=== PATIENT | female | born 1975 | race Caucasian/White ===

== ENCOUNTER 2018-02-20 23:39 | Emergency (ER) | payer OTHER ==
--- OUTSIDE RECORDS SUMMARY | 2018-02-20 23:42 | XMS REPORT | Continuity of Care Document ---
:1975 Author Organization Interface Problems Problem Status Onset Classification Date Comments Source Date Reported FOLLOW UP Active 06/11/[address] R10.11 - RIGHT Active 05/01/19 [facility] UPPER QUADRANT [address] [place] PAIN K50.8 NEW VISIT Active 03/26/[address] BDDC- R14.0 AB Active 03/12/19 [facility] DISTENSION [address] [place] [address] BDDC- R14.0 AB Active 03/12/19 [facility] DISTENS[facility] [address] [place] [address] R14.0 - Active 03/11/19 [facility] ABDOMINAL [address] [place] DISTENSION (GASEOUS) BDDC/K50.80 Active 01/09/20 [facility] CROHN'S Medical DISEASE OF Center BOTH SMAL BDDC/ Active 01/09/[address] FOLLOW UP PER Active 01/07/[address] BLEEDING Active 07/07/[address] BDDC - K50.90 Active 05/02/19 [facility] CROHN'S Medical DISEASE W/O Center COMPLI CROHN'S Active 04/28/19 [facility] DISEASE Medical SELF Center REFERRAL Hemorrhoids<miramontes Active 12/08/19 Problem 06/19/2016 Data migrated [facility] p>2</sup> 07 from [employer] [facility] [place], 07/27/14. [facility] [place] Anxiety Active Problem 06/19/2016 Data migrated [facility] disorder<sup>1 from [employer] </sup> [facility] [place], 07/27/14. [facility] [place] Anxiety Active Problem 06/19/2016 [facility] OPIKate [place] Colon polyps Resolved Problem 06/19/2016 [facility], OP[facility] Rdoo High blood Active Problem 06/19/2016 [facility], [facility] [place] IBD (<span Active Problem 06/19/2016 [facility] ID="[id number] Medical 09">Confirmed< Center, /span>) [facility] [place] Medications Medication Details Route Status Patient Ordering Order Source Instructions Provider Date Domperidone Domperidone Active [place] , 10 mg=, 017 Medical PO, QID, Center Script given to pt and pt signed consent., # 120 tab, Refill(s) 2, other Rabeprazole 10 mg=1 Active [facility] sodium 10 MG cap, PO, 017 Medical Enteric Coated Daily, # 90 Center Capsule [Aciphex] cap, 3 Refill(s), Pharmacy: [facility] #6704 Phenergan 25 mg 25 mg=1 Active [facility] oral tablet tab, PO, 017 Medical Daily, X 30 Center day, # 30 tab, 0 Refill(s), Pharmacy: [facility] #6704 Hyoscyamine 0.125 mg=1 Active [facility] Sulfate 0.125 MG tab, SL, 017 Medical Sublingual Tablet Q6H, # 120 Center [Levsin] tab, 0 Refill(s), Pharmacy: [facility] #6704 {2 (480 ML See Active [facility] Magnesium Sulfate Instruction 016 Medical 0.0277 MEQ/ML / s, 177 mL Center potassium sulfate PO ONCE, # 0.0374 MEQ/ML / 354 mL, 0 sodium sulfate Refill(s), 0.257 MEQ/ML Oral other Solution) } Pack [Suprep Bowel Prep Kit] Ascorbic Acid 4.7 See Inactive [facility] MG/ML / Instruction 016 Medical POLYETHYLENE s, Take as Center GLYCOL 3350 100 directed by MG/ML / Potassium physician., Chloride 0.0136 # 1 ea, 0 MEQ/ML / Sodium Refill(s), Ascorbate 5.9 other MG/ML / Sodium Chloride 0.046 MEQ/ML / sodium sulfate 7.5 MG/ML Oral Solution [MoviPrep] rifaximin 550 MG 550 mg=1 Active [facility] Oral Tablet tab, PO, 016 Medical [XIFAXAN] TID, # 42 Center tab, 0 Refill(s), other non-formulary Refill(s) 0 Active [facility] 016 Medical Center Rabeprazole 20 mg=1 Active [facility] sodium 20 MG tab, PO, 016 Medical Enteric Coated Daily, # 30 Center Tablet [Aciphex] tab, 1 Refill(s), Pharmacy: [facility]/pharm[facility] #6704 Promethazine 12.5 mg=1 Active [facility] Hydrochloride tab, PO, 016 Medical 12.5 MG Oral Q4H, PRN Center Tablet Nausea & [Phenergan] Vomiting, # 80 tab, 1 Refill(s), [facility] Amoxicillin 500 1 tab, PO, Active [facility] MG / Clavulanate Q8H, X 10 016 Medical 125 MG Oral day, # 30 Center Tablet [Augmentin tab, 0 500-mg] Refill(s), Pharmacy: [facility]/pharmac [facility] #6707 {2 (480 ML 177 mL, PO, Active [facility] Magnesium Sulfate ONCE, # 177 016 Medical 0.0277 MEQ/ML / mL, 0 [place] potassium sulfate Refill(s), 0.0374 MEQ/ML / Pharmacy: sodium sulfate [facility] 0.257 MEQ/ML Oral y #6701 Solution) } Pack [Suprep Bowel Prep Kit] GoLYTELY oral See Inactive [facility] powder for Instruction 016 Medical reconstitution s, Take as Center directed by physician., # 1 ea, 0 Refill(s), Pharmacy: [facility]/pharmac [facility] #6704 multivitamin Daily, 0 Active [facility] Refill(s) [address] [place] [address] Folic Acid Daily, 0 Active [facility] Refill(s) [address] [place] [address] Center Methotrexate 0 Refill(s) Active [address] Center Prevacid 30 mg, PO, Active [place] Daily, # 15 016 Medical cap, 0 Center Refill(s) Remicade 5 mg/kg, Active [facility] IV, 0 016 Medical Refill(s) Center Allergies, Adverse Reactions, Alerts Substance Category Reaction Severity Reaction Status Date Comments Source type Reported Latex Assertion Drug Active [facility] morphine Assertion Drug Active [facility] NSAIDs Assertion Drug Active [facility] Immunizations Immunization Date Given Site Status Last Updated Comments Source Results Order Results Value Reference Date Interpretation Comments Source Name Range Chest 2 Chest 2 EXAM: XR CHEST 2 VIEWS 01/08 - [facility] views views /2015 - [place] DX DATE: 01/09/2016 1:53 PM 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 TECHNIQUE: PA and lateral chest radiographs. Number of images: 2 FINDINGS: Lines and tubes: None. Lungs and pleura: No pulmonary or pleural based abnormality is identified. Heart and mediastinum: The heart size is normal for technique. The mediastinal contours are normal. Bones: No acute bony abnormality is identified. Soft Tissues: Unremarkable. IMPRESSION: 1. No acute cardiopulmonary abnormality. Vital Signs Vital Sign Value Date Comments Source Systolic (mm Hg) 116 06/16/2016 [facility] Diastolic (mm Hg) 80 06/16/2016 [facility] Weight 52.727 06/16/2016 [facility] BMI Calculated 21.26 06/16/2016 [facility] Height 157.48 cm 06/16/2016 [facility] Respitory Rate 16 06/16/2016 [facility] Heart Rate 85 06/16/2016 [facility] Weight 74.545 04/30/2016 [facility] BMI Calculated 30.06 04/30/2016 [facility] Height 157.48 cm 04/30/2016 [facility] Heart Rate 76 04/30/2016 [facility] Respitory Rate 16 04/30/2016 [facility] Systolic (mm Hg) 110 04/30/2016 [facility] Diastolic (mm Hg) 78 04/30/2016 [facility] BMI Calculated 30.49 01/09/2016 [facility] Weight 75.625 01/09/2016 [facility] Height 157.48 cm 01/09/2016 [facility] Systolic (mm Hg) 114 01/09/2016 [facility] Diastolic (mm Hg) 73 01/09/2016 [facility] Heart Rate 77 01/09/2016 [facility] Temperature Oral (F) 98.2 F 01/09/2016 [facility] Height 157.48 cm 07/09/2015 [facility] BMI Calculated 29.37 07/09/2015 [facility] Weight 72.841 07/09/2015 [facility] Systolic (mm Hg) 118 07/09/2015 [facility] Diastolic (mm Hg) 84 07/09/2015 [facility] Heart Rate 81 07/09/2015 [facility] Temperature Oral (F) 96.2 F 07/09/2015 [facility] BMI Calculated 28.41 07/08/2015 [facility] Weight 70.455 07/08/2015 [facility] Heart Rate 67 07/08/2015 [facility] Systolic (mm Hg) 122 07/08/2015 [facility] Diastolic (mm Hg) 76 07/08/2015 [facility] Respitory Rate 18 07/08/2015 [facility] Height 157.48 cm 07/08/2015 [facility] Temperature Oral (F) 98.1 F 07/08/2015 [facility] Height 157.48 cm 06/11/2015 [facility] Weight 72.955 06/11/2015 [facility] Temperature Oral (F) 97.3 F 06/11/2015 [facility] BMI Calculated 29.42 06/11/2015 [facility] Heart Rate 76 06/11/2015 [facility] Systolic (mm Hg) 138 06/11/2015 [facility] Diastolic (mm Hg) 84 06/11/2015 [facility] BMI Calculated 29.33 05/02/2015 [facility] Weight 72.727 05/02/2015 [facility] Temperature Oral (F) 97.9 F 05/02/2015 [facility] Heart Rate 77 05/02/2015 [facility] Height 157.48 cm 05/02/2015 [facility] Systolic (mm Hg) 118 05/02/2015 [facility] Diastolic (mm Hg) 74 05/02/2015 [facility] Encounters Location Location Encounter Encounter Reason Attending ADM DC Status Source Details Type Number For Provider Date Date Visit [facility] [id number] Marlon 05/01 05/[address] [facility] [place] /2015 [facility] Bedded [id number] Marlon 05/25 05/[address] [facility] Outpatient [place] /2015 [facility] Outpatient [id number] Marlon 06/10 06/[address] [facility] [place] /2015 [facility] EC [id number] Jeevan 07/07 07/[address] [facility] Emergency [place] /2015 [facility] Outpatient [id number] Marlon 07/08 07/09 [facility] [id number] [facility] 12/23 Active [facility] Outpatient [id number] Marlon 01/08 01/09 [facility] [id number] Soadrianab 01/08 01/09 [facility] Bedded [id number] Marlon 01/14 01/[address] [facility] Outpatient [place] /2015 [facility] Bedded [id number] Marlon 02/08 02/[address] [facility] Outpatient [place] /2015 [facility] Outpatient [id number] EDWARD 03/24 [facility] Outpatient [id number] Marlon 03/30 03/31 [facility] /2016 [facility] Outpatient [id number] Marlon 04/30 05/01 [facility] /2016 [facility] Outpatient [id number] Marlon 06/16 06/17 [facility] /2016 [facility] Procedures Procedure Code Date Perfomer Comments Source Colonoscopy [id number] [facility] Ileum [id number] Removal of [place] operations<sup>1</ partial Medical sup> ileum/cecum/ap Center pendix Colonoscopy [id number] [facility] [place] Ileum 8155227 Removal of [facility] operations<sup>1</ partial [place] sup> ileum/cecum/ap pendix
--- OUTSIDE RECORDS SUMMARY | 2018-02-20 23:42 | XMS REPORT | Summary of Care ---
:1975 Author Organization [facility] Address [address] [id number]- Encounter HQ Camelia(VIET) [id number] Date(s): 06/11/15 - 06/11/15 [facility] [address] [place] [address]- [facility] [phone] Discharge Disposition: Home Attending Physician: Marlon Avitia MD Referring Physician: Marlon Avitia MD Vital Signs Most recent to oldest [Reference Range]: 1 Height 157.48 cm (06/11/15 2:22 PM) Temperature Oral [96.4-99.1 DegF] 97.3 DegF (06/11/15 2:22 PM) Blood Pressure [90-140/60-90 mmHg] 138/84 mmHg (06/11/15 2:22 PM) Peripheral Pulse Rate [60-100 bpm] 76 bpm (06/11/15 2:22 PM) Weight 72.955 kg (06/11/15 2:22 PM) Body Mass Index 29.42 m2 (06/11/15 2:22 PM) Problem List Condition Effective Dates Status Health Status Informant Anxiety(Confirmed) Active Anxiety disorder1 Active Colon polyps(Confirmed) Resolved Hemorrhoids2 12/07/06 Active High blood pressure(Confirmed) Active IBD (inflammatory bowel Active disease)(Confirmed) 1Data migrated from [employer] on 07/27/14.2Data migrated from [employer] on 07/27/14. Allergies, Adverse Reactions, Alerts Substance Reaction Severity Status morphine Active NKDA1 Active 1Data migrated from [employer] on 04/22/15. Originally documented as NKA. Medications Aciphex 20 mg oral enteric coated tablet 20 mg=1 tab, PO, Daily, # 30 tab, 1 Refill(s), Pharmacy: [facility]/pharmacy #[id number] Start Date: 06/11/15 Stop Date: 08/10/15 Status: OrderedAugmentin 500 mg oral tablet 1 tab, PO, Q8H, X 10 day, # 30 tab, 0 Refill(s), Pharmacy: [facility]/pharmacy #[id number] Start Date: 06/11/15 Stop Date: 06/21/15 Status: OrderedPhenergan 12.5 mg oral tablet 12.5 mg=1 tab, PO, Q4H, PRN Nausea & Vomiting, # 80 tab, 1 Refill(s), [id number] Start Date: 06/11/15 Stop Date: 06/10/16 Status: Ordered Results No data available for this section Immunizations No data available for this section Procedures Procedure Date Related Diagnosis Body Site Colonoscopy Social History Social History Type Response Smoking Status Former smoker; Exposure to Tobacco Smoke None; Cigarette Smoking Last 365 Days No; Reg Smoking Cessation Counseling No Assessment and Plan No data available for this section
--- OUTSIDE RECORDS SUMMARY | 2018-02-20 23:42 | XMS REPORT | Summary of Care ---
:1975 Author Organization [facility] Address [address] [address]- Encounter HQ Camelia(VIET) [id number] Date(s): 05/02/15 - 05/02/15 [facility] [address] [place] [address]- [facility] [phone] Discharge Disposition: Home Attending Physician: Marlon Avitia MD Referring Physician: Marlon Avitia MD Vital Signs Most recent to oldest [Reference Range]: 1 Height 157.48 cm (05/02/15 9:30 AM) Temperature Oral [96.4-99.1 DegF] 97.9 DegF (05/02/15 9:30 AM) Blood Pressure [90-140/60-90 mmHg] 118/74 mmHg (05/02/15 9:30 AM) Peripheral Pulse Rate [60-100 bpm] 77 bpm (05/02/15 9:30 AM) Weight 72.727 kg (05/02/15 9:30 AM) Body Mass Index 29.33 m2 (05/02/15 9:30 AM) Problem List Condition Effective Dates Status Health Status Informant Anxiety(Confirmed) Active Anxiety disorder1 Active Colon polyps(Confirmed) Resolved Hemorrhoids2 12/07/06 Active High blood pressure(Confirmed) Active IBD (inflammatory bowel Active disease)(Confirmed) 1Data migrated from [employer] on 07/27/14.2Data migrated from [employer] on 07/27/14. Allergies, Adverse Reactions, Alerts Substance Reaction Severity Status morphine Active NKDA1 Active 1Data migrated from [employer] on 04/22/15. Originally documented as NKA. Medications folic acid Daily, 0 Refill(s) Start Date: 05/02/15 Status: OrderedGoLYTELY oral powder for reconstitution See Instructions, Take as directed by physician., # 1 ea, 0 Refill(s), Pharmacy : [facility]/pharmacy #[id number] Start Date: 05/02/15 Stop Date: 05/02/15 Status: Discontinuedmethotrexate 0 Refill(s) Start Date: 05/02/15 Status: Orderedmultivitamin Daily, 0 Refill(s) Start Date: 05/02/15 Status: OrderedPrevacid 30 mg, PO, Daily, # 15 cap, 0 Refill(s) Start Date: 05/02/15 Stop Date: 05/17/15 Status: OrderedRemicade 5 mg/kg, IV, 0 Refill(s) Start Date: 05/02/15 Status: OrderedSuprep Bowel Prep Kit oral liquid 177 mL, PO, ONCE, # 177 mL, 0 Refill(s), Pharmacy: [facility]/pharmacy #[id number] Start Date: 05/02/15 Status: Ordered Results No data available for [...]
--- OUTSIDE RECORDS SUMMARY | 2018-02-20 23:42 | XMS REPORT | Summary of Care ---
:1975 Author Organization [facility] Address [address] [place], [place] [address]- Encounter HQ Camelia(FIN) [id number] Date(s): 07/07/15 - 07/07/15 [facility] [address] [place] [address] Professional Services provided by [facility] [place] [address]- Discharge Disposition: Not Seen Attending Physician: Jeevan Oneil MD Vital Signs Most recent to oldest [Reference Range]: 1 Height 157.48 cm (07/07/15 8:45 PM) Temperature Oral [96.4-99.1 DegF] 98.1 DegF (07/07/15 8:45 PM) Blood Pressure [90-140/60-90 mmHg] 122/76 mmHg (07/07/15 8:45 PM) Respiratory Rate [14-20 BRMIN] 18 BRMIN (07/07/15 8:45 PM) Peripheral Pulse Rate [60-100 bpm] 67 bpm (07/07/15 8:45 PM) Weight 70.455 kg (07/07/15 8:45 PM) Body Mass Index 28.41 m2 (07/07/15 8:45 PM) Problem List Condition Effective Dates Status Health Status Informant Anxiety(Confirmed) Active Anxiety disorder1 Active Colon polyps(Confirmed) Resolved Hemorrhoids2 12/07/06 Active High blood pressure(Confirmed) Active IBD (inflammatory bowel Active disease)(Confirmed) 1Data migrated from [employer] on 07/27/14.2Data migrated from [employer] on 07/27/14. Allergies, Adverse Reactions, Alerts Substance Reaction Severity Status Latex Active morphine Active NKDA1 Active NSAIDs Active 1Data migrated from [employer] on 04/22/15. Originally documented as NKA. Medications No data available for this section Results No data available for this section [...]
--- OUTSIDE RECORDS SUMMARY | 2018-02-20 23:42 | XMS REPORT | Summary of Care ---
:1975 Author Organization [facility] Address [address] [place], [place] [address]- Encounter HQ Pj_danita(FIN) [id number] Date(s): 05/26/15 - 05/26/15 [facility] [address] [place] [address] [facility] Discharge Disposition: Home Attending Physician: Marlon Avitia MD Referring Physician: Marlon Avitia MD Vital Signs No data available for this section Problem List Condition Effective Dates Status Health [...]
--- OUTSIDE RECORDS SUMMARY | 2018-02-20 23:43 | XMS REPORT | Summary of Care ---
:1975 Author Organization [facility] Address [address] [place], [place] [address]- Encounter HQ Pj_danita(FIN) [id number] Date(s): 01/09/16 - 01/09/16 [facility] [address] [place] [address]- [phone] Discharge Disposition: Home or Self Care Attending Physician: Galen Brothers MD Vital Signs No data available for this section Problem List Condition Effective Dates Status Health Status Informant Anxiety disorder1 Active Anxiety(Confirmed) Active Colon polyps(Confirmed) Resolved Hemorrhoids2 12/07/06 Active [...] Procedure Date Related Diagnosis Body Site Colonoscopy Ileum operations1 1Removal of partial ileum/cecum/appendix Social History Social History Type Response Substance Abuse Use: None. 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
--- OUTSIDE RECORDS SUMMARY | 2018-02-20 23:43 | XMS REPORT | Summary of Care ---
:1975 Author Organization [facility] Address [address] [place], [place] [address]- Encounter HQ Pj_danita(FIN) [id number] Date(s): 06/16/16 - 06/16/16 [facility] [address] [place] [address] [phone] Discharge Disposition: Home or Self Care Attending Physician: Marlon Avitia MD Referring Physician: Marlon Avitia MD Vital Signs Most recent to oldest [Reference Range]: 1 Height 157.48 cm (06/16/16 2:32 PM) Blood Pressure [90-140/60-90 mmHg] 116/80 mmHg (06/16/16 2:32 PM) Respiratory Rate [14-20 BRMIN] 16 BRMIN (06/16/16 2:32 PM) Peripheral Pulse Rate [60-100 bpm] 85 bpm (06/16/16 2:32 PM) Weight 52.727 kg (06/16/16 2:32 PM) Body Mass Index 21.26 m2 (06/16/16 2:32 PM) Problem List Condition Effective Dates Status [...] on 04/22/15. Originally documented as NKA. Medications Domperidone Domperidone, 10 mg=, PO, QID, Script given to pt and pt signed consent., # 120 tab, Refill(s) 2, other Start Date: 06/16/16 Status: Ordered Results No data available for [...]
--- OUTSIDE RECORDS SUMMARY | 2018-02-20 23:43 | XMS REPORT | Summary of Care ---
:1975 Author Organization [facility] Address [address] [address]- Encounter HQ Camelia(VIET) [id number] Date(s): 07/09/15 - 07/09/15 [facility] [address] [place] [address]- [facility] [phone] Discharge Disposition: Home Attending Physician: Marlon Avitia MD Referring Physician: Marlon Avitia MD Vital Signs Most recent to oldest [Reference Range]: 1 Height 157.48 cm (07/09/15 3:09 PM) Temperature Oral [96.4-99.1 DegF] 96.2 DegF *LOW* (07/09/15 3:09 PM) Blood Pressure [90-140/60-90 mmHg] 118/84 mmHg (07/09/15 3:09 PM) Peripheral Pulse Rate [60-100 bpm] 81 bpm (07/09/15 3:09 PM) Weight 72.841 kg (07/09/15 3:09 PM) Body Mass Index 29.37 m2 (07/09/15 3:09 PM) Problem List Condition Effective Dates Status [...] on 04/22/15. Originally documented as NKA. Medications non-formulary Refill(s) 0 Start Date: 07/09/15 Status: Ordered Results No data available for [...]
--- OUTSIDE RECORDS SUMMARY | 2018-02-20 23:43 | XMS REPORT | Summary of Care ---
:1975 Author Organization [facility] Address [address] [place], [place] [address]- Encounter HQ Pj_danita(FIN) [id number] Date(s): 02/09/16 - 02/09/[address] [address]- [place] Discharge Disposition: Home or Self Care Attending [...] Counseling No 1Occasional drinker Assessment and Plan Extracted from: Title: Ingestion of Smartpill Author: Catarina Wilson RN Date: 02/09/16 Patient was here for ingestion of Smart Pill for GI transit study. NPO status verified. The patient stated that they had no allergies to the ingredients in the meal/bar provided. Patient did not take any GI altering medications. Patient was instructed to eat the meal/bar provided in 15 minutes. Patient ingested the meal without difficulty. The patient was shown the capsule/smart pill to swallow and the capsule/smart pill was swallowed with no difficulty. The patient agreed to not eat anything for 6 hours. Diary was provided and instructions given on how to keep the diary The patient confirmed that they were aware not to have an MRI for 30 days Our phone number was provided for questions and concerns. Patient was instructed to return the monitor to the [facility]. [id number] Pressure Julian Code HA5 HA5
--- OUTSIDE RECORDS SUMMARY | 2018-02-20 23:43 | XMS REPORT | Summary of Care ---
:1975 Author Organization [facility] Address [address] [place], [place] [address]- Encounter HQ Camelia(VIET) [phone] Date(s): 01/09/16 - 01/09/16 [facility] [address] [place] [address] [phone] Discharge Disposition: Home or Self Care Attending Physician: Marlon Avitia MD Referring Physician: Marlon Avitia MD Vital Signs Most recent to oldest [Reference Range]: 1 Height 157.48 cm (01/09/16 9:59 AM) Temperature Oral [96.4-99.1 DegF] 98.2 DegF (01/09/16 9:59 AM) Blood Pressure [90-140/60-90 mmHg] 114/73 mmHg (01/09/16 9:59 AM) Peripheral Pulse Rate [60-100 bpm] 77 bpm (01/09/16 9:59 AM) Weight 75.625 kg (01/09/16 9:59 AM) Body Mass Index 30.49 m2 (01/09/16 9:59 AM) Problem List Condition Effective Dates Status [...] on 04/22/15. Originally documented as NKA. Medications MoviPrep oral powder for reconstitution See Instructions, Take as directed by physician., # 1 ea, 0 Refill(s), other Start Date: 01/09/16 Stop Date: 01/09/16 Status: DiscontinuedSuprep Bowel Prep Kit oral liquid See Instructions, 177 mL PO ONCE, # 354 mL, 0 Refill(s), other Start Date: 01/09/16 Status: OrderedXifaxan 550 mg oral tablet 550 mg=1 tab, PO, TID, # 42 tab, 0 Refill(s), other Start Date: 01/09/16 Stop Date: 01/23/16 Status: Ordered Results No data available for [...]
--- OUTSIDE RECORDS SUMMARY | 2018-02-20 23:43 | XMS REPORT | Summary of Care ---
:1975 Author Organization [facility] [place] [facility] Address [address] [place], [place] [address]- Encounter HQ Camelia(FIN) [phone] Date(s): 01/15/16 - 01/15/[address] [address]- [place] Discharge Disposition: Home or Self Care [...] and Plan Extracted from: Title: Ingestion of Small Bowel Capsule Author: Jessy Ojeda RN Date: 01/15/16 I spoke with patient in pre-op and explained the procedure and post-procedure instructions. In pre-op NPO/prep status was verified. Pt denied that they have any swallowing disorders; any GI obstruction that they are aware of; and patient understands not to have a MRI in the next thirty days if capsule is not visualized passing from GI tract. If an MRI is needed within the thirty day time frame a X-Ray must be done first to make sure the Capsule has passed, if not visualized. The patient was instructed to call the doctor or seek help in the event of abdominal pain, nausea, and or vomiting while the s tudy is taking place. The patient was instructed that they may drink 2 hours after the PillCam Small Bowel Capsule was placed. The patient was instructed not to drink anything red or purple during the s tudy. The patient was also instructed that they may eat a light lunch 4 hours after the Small Bowel Capsule was placed. The patient verbalized understanding of all instructions. The sensor belt was placed on the patient in pre-op and instructed on how to wear the belt and monitor. The patient was given written instructions and verbalized understanding. Small bowel capsule was placed via EGD by Dr. Irene. The post-op nurses were informed of these instructions as well. Capsule ID [id number] Exp. Lot 2016-12
--- OUTSIDE RECORDS SUMMARY | 2018-02-20 23:43 | XMS REPORT | Summary of Care ---
:1975 Author Organization [facility] Address [address] [place], [place] [address]- Encounter HQ Encntr_aliisa(FIN) [phone] Date(s): 03/30/16 - 03/30/16 [facility] [address] [place] [phone] Discharge Disposition: Home or Self Care Attending [...]
--- OUTSIDE RECORDS SUMMARY | 2018-02-20 23:43 | XMS REPORT | Summary of Care ---
:1975 Author Organization [facility] [place] [facility] Address [address] [place], [place] [address]- Encounter HQ Pj_danita(FIN) [phone] Date(s): 04/30/16 - 04/30/16 [facility] [place] [facility] [address] [place] [phone] Discharge Disposition: Home or Self Care Attending Physician: Marlon Avitia MD Referring Physician: Marlon Avitia MD Vital Signs Most recent to oldest [Reference Range]: 1 Height 157.48 cm (04/30/16 10:01 AM) Blood Pressure [90-140/60-90 mmHg] 110/78 mmHg (04/30/16 10:01 AM) Respiratory Rate [14-20 BRMIN] 16 BRMIN (04/30/16 10:01 AM) Peripheral Pulse Rate [60-100 bpm] 76 bpm (04/30/16 10:01 AM) Weight 74.545 kg (04/30/16 10:01 AM) Body Mass Index 30.06 m2 (04/30/16 10:01 AM) Problem List Condition Effective Dates Status [...] on 04/22/15. Originally documented as NKA. Medications AcipHex Sprinkle 10 mg oral delayed release capsule 10 mg=1 cap, PO, Daily, # 90 cap, 3 Refill(s), Pharmacy: [facility]/pharmacy #[id number] Start Date: 04/30/16 Stop Date: 04/25/17 Status: OrderedLevsin SL 0.125 mg sublingual tablet 0.125 mg=1 tab, SL, Q6H, # 120 tab, 0 Refill(s), Pharmacy: [facility]/pharmacy #[id number] Start Date: 04/30/16 Stop Date: 05/30/16 Status: OrderedPhenergan 25 mg oral tablet 25 mg=1 tab, PO, Daily, X 30 day, # 30 tab, 0 Refill(s), Pharmacy: [facility]/pharmacy #[id number] Start Date: 04/30/16 Stop Date: 05/30/16 Status: Ordered Results No data available for [...]
[2018-02-21] MEDS ORDERED: NA CHLORIDE 0.9% 1,000 ML ONE (00:27)
[2018-02-21] MEDS ORDERED: METHYLPREDNISOLONE 125 MG INJ ONE (00:27)
[2018-02-21] MEDS ORDERED: IPRATROPIUM BROM 0.5MG/2.5ML ONE (00:28)
[2018-02-21] MEDS ORDERED: ALBUTEROL 2.5 MG/3 ML NEB SOL ONE (00:28)
[2018-02-21 01:28] LABS: Absolute Lymphocytes (CBC) 2.3 K/uL (0.7-4.9); Absolute Monocytes 0.7 K/uL (0.1-1.3); Absolute Neutrophil 8.5 K/uL (1.8-8.0); Basophils % 0.5 % (0-1.3); Eosinophils % 4.2 % (0-4.4); Hematocrit 36.6 % (36.0-45.0); Lymphocytes % 18.9 % (15.3-44.8); MPV 9.7 fL (7.6-11.3); Monocytes % 5.4 % (3.3-12.3)
[2018-02-21 01:37] LABS: Potassium 3.7 mmol/L (3.5-5.1)
[2018-02-21] MEDS ORDERED: ACETAMINOPHEN 500 MG TAB ONE (01:38)
[2018-02-21 01:46] LABS: Urine Blood 2+ (NEG); Urine Glucose NEGATIVE (NEG); Urine Protein NEGATIVE (NEG); Urine Specific Gravity >1.030 (1.005-1.030); Urine pH 5.5 (5.0-7.0)
[2018-02-21] MEDS ORDERED: LEVALBUTEROL 1.25 MG/3 ML NEB ONE (01:56)
[2018-02-21] MEDS ORDERED: CEFTRIAXONE/SWI 1gm 1 GM/10 ML SYR ONE (01:57)
--- NOTE | 2018-02-21 02:03 | ER ---
Nurse's Notes [facility] Name: Meseret Mccall Age: 42 yrs Sex: Female : 1975 Arrival Date: 02/20/2018 Time: 23:43 Bed 6 Private MD: Diagnosis: Acute sinusitis. Pharyngitis. Bronchitis Presentation: 02/20 23:55 Presenting complaint: Patient states: Sore throat, cough x 3-4 days, worsening; States lp1 "pain with cough, making it hard to breath"; Denies any fever. Transition of care: patient was not received from another setting of care. Onset of symptoms was February 20, 2018. Risk Assessment: Do you want to hurt yourself or someone else? Patient reports no desire to harm self or others. Initial Sepsis Screen: Does the patient meet any 2 criteria? No. Patient's initial sepsis screen is negative. Does the patient have a suspected source of infection? No. Patient's initial sepsis screen is negative. Care prior to arrival: None. 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 - Social history:: Smoking status: Patient uses tobacco products, denies chronic smoking, but will smoke occasionally. - Ebola Screening: : No symptoms or risks identified at this time. Screenin:58 Abuse screen: Denies threats or abuse. Denies injuries from another. Nutritional lp1 screening: No deficits noted. Tuberculosis screening: No symptoms or risk factors identified. Fall Risk None identified. Assessment: 02/21 00:00 General: Appears in no apparent distress. Behavior is appropriate for age. Pain: lp1 Complains of pain in throat Pain currently is 6 out of 10 on a pain scale. Neuro: Level of Consciousness is awake, alert, obeys commands, Oriented to person, place, time, situation. Cardiovascular: Patient's skin is warm and dry. Respiratory: Reports cough that is productive, persistent pain with cough Airway is patent Respiratory effort is even, unlabored, Breath sounds are clear bilaterally. Parent/caregiver reports the patient having shortness of breath pain with respiration pain with cough. GI: No signs and/or symptoms were reported involving the gastrointestinal system. : No signs and/or symptoms were reported regarding the genitourinary system. EENT: Throat has enlarged tonsils Reports nasal congestion nasal discharge. Derm: Skin is pink, warm \\T\\ dry. Musculoskeletal: No signs and/or symptoms reported regarding the musculoskeletal system. 01:21 Reassessment: Patient states headache at this time, related to coughing; Provider lp1 notifed. 02:30 Reassessment: Patient appears in no apparent distress at this time. Patient is alert, lp1 oriented x 3, equal unlabored respirations, skin warm/dry/pink. Patient states feeling better. Vital Signs: 02/20 23:56 BP 131 / 79; Pulse 93; Resp 18; Temp 98.9(O); Pulse Ox 100% on R/A; Weight 77.11 kg; lp1 Height 5 ft. 2 in. (157.48 cm); 02/21 01:54 BP 125 / 70; Pulse 86; Resp 18; Pulse Ox 98% on R/A; lp1 02:29 BP 124 / 77; Pulse 84; Resp 18; Pulse Ox 99% on R/A; lp1 02/20 23:56 Body Mass Index 31.09 (77.11 kg, 157.48 cm) lp1 ED Course: 02/20 23:43 Patient arrived in ED. al2 23:45 Inserted saline lock: 20 gauge in right antecubital area, using aseptic technique. mw2 Blood collected. 23:48 Barbara Moss, MARIANA is Primary Nurse. lp1 23:49 Bandar Hernandez MD is Attending Physician. pkl 23:56 Triage completed. lp1 23:57 Arm band placed on right wrist. lp1 23:58 Patient has correct armband on for positive identification. lp1 02/21 00:48 Chest Single View In Process Unspecified. EDMS 02:29 No provider procedures requiring assistance completed. IV discontinued, No lp1 redness/swelling at site. Pressure dressing applied. Administered Medications: 00:30 Drug: NS 0.9% 1000 ml Route: IV; Rate: 1000 ml; Site: right antecubital; la1 02:29 Follow up: IV Status: Completed infusion; IV Intake: 1000ml lp1 00:30 Drug: SOLU-Medrol 125 mg Route: IVP; Site: right antecubital; la1 01:45 Follow up: Response: No adverse reaction lp1 00:30 Drug: Albuterol - atroVENT (3:1) (2.5 mg - 0.5 mg) 3 ml Route: Nebulizer; la1 01:45 Follow up: Response: Marked relief of symptoms lp1 01:33 Drug: Tylenol 1000 mg Route: PO; lp1 02:28 Follow up: Response: No adverse reaction lp1 01:53 Drug: Rocephin - (cefTRIAXone) 1 grams Route: IVPB; Infused Over: 30 mins; Site: right lp1 antecubital; 02:30 Follow up: IV Status: Completed infusion; IV Intake: 10ml lp1 02:28 Not Given (Physician Discretion): Xopenex 1.25 mg Inhalation once lp1 Intake: 02:29 IV: 1000ml; Total: 1000ml. lp1 02:30 IV: 10ml; Total: 1010ml. lp1 Outcome: 02:03 Discharge ordered by . pkl 02:35 Discharged to home ambulatory. lp1 02:35 Condition: good 02:35 Discharge instructions given to patient, Instructed on discharge instructions, follow up and referral plans. medication usage, Demonstrated understanding of instructions, follow-up care, medications, Prescriptions given X 3. 02:35 Patient left the ED. lp1 Signatures: Dispatcher [employer] EDMS Bandar Hernandez MD MD pkBarbara Quintana RN RN lp1 Abilio Abreu RN RN la1 Sabrina Munoz MyKena mw2 Corrections: (The following items were deleted from the chart) 00:49 12/24 22:42 Inserted saline lock: 20 gauge in right antecubital area, using aseptic mw2 technique. Blood collected. mw2
--- NOTE | 2018-02-21 02:04 | EDPHYS ---
Physician Documentation [facility] Name: Meseret Mccall Age: 42 yrs Sex: Female : 1975 Arrival Date: 02/20/2018 Time: 23:43 Bed 6 Private MD: ED Physician Bandar Hernandez HPI: 02/21 00:07 This 42 yrs old Female presents to ER via Ambulatory with complaints of Sore pkl Throat, Fever, Cough. 00:08 The patient or guardian reports cough, described as moderate, with productive sputum. pkl Onset: The symptoms/episode began/occurred 4 day(s) ago. Associated signs and symptoms: Pertinent positives: fever, sore throat, hoarseness of voice. 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 - Social history:: Smoking status: Patient uses tobacco products, denies chronic smoking, but will smoke occasionally. - Ebola Screening: : No symptoms or risks identified at this time. ROS: 02/21 00:08 Eyes: Negative for injury, pain, redness, and discharge. pkl ENT: Positive for hoarseness, nasal discharge, sinus congestion, sore throat. Neck: Negative for stiffness. Cardiovascular: Positive for chest pain, with cough. Respiratory: Negative for shortness of breath. Abdomen/GI: Negative for abdominal pain, nausea, vomiting, and diarrhea. Back: Negative for acute changes. : Negative for urinary symptoms. MS/extremity: Negative for acute changes. Skin: Negative for rash. Neuro: Negative for altered mental status. Exam: 00:08 Head/Face: Normocephalic, atraumatic. Eyes: Pupils equal round and reactive to light, pkl extra-ocular motions intact. Lids and lashes normal. Conjunctiva and sclera are non-icteric and not injected. Cornea within normal limits. Periorbital areas with no swelling, redness, or edema. 00:08 ENT: Posterior pharynx: swelling, that is mild, erythema, that is mild. 00:08 Neck: Exam negative for nuchal rigidity. 00:08 Chest/axilla: Exam negative for acute changes. 00:08 Cardiovascular: Rate: normal, Rhythm: regular. 00:08 Respiratory: the patient does not display signs of respiratory distress, Respirations: normal, Breath sounds: are clear throughout. 00:08 Abdomen/GI: Bowel sounds: normal, Palpation: abdomen is soft and non-tender, in all quadrants. 00:08 Back: Exam negative for acute changes. 00:08 : Exam negative for acute changes. 00:08 Musculoskeletal/extremity: Exam is negative for acute changes. 00:08 Skin: Exam negative for rash. 00:08 Neuro: Orientation: is normal, Mentation: is normal, Cranial nerves: grossly normal, Motor: is normal. Vital Signs: 02/20 23:56 BP 131 / 79; Pulse 93; Resp 18; Temp 98.9(O); Pulse Ox 100% on R/A; Weight 77.11 kg; lp1 Height 5 ft. 2 in. (157.48 cm); 02/21 01:54 BP 125 / 70; Pulse 86; Resp 18; Pulse Ox 98% on R/A; lp1 02:29 BP 124 / 77; Pulse 84; Resp 18; Pulse Ox 99% on R/A; lp1 02/20 23:56 Body Mass Index 31.09 (77.11 kg, 157.48 cm) lp1 MDM: 02/20 23:49 Patient medically screened. pkl 02/21 02:02 Data reviewed: vital signs, nurses notes, lab test result(s), radiologic studies, plain pkl films. 02/21 00:44 Order name: Basic Metabolic Panel; Complete Time: 01:41 EDMS 02/21 00:44 Order name: CBC with Automated Diff; Complete Time: 01:41 EDMS 02/21 00:38 Order name: Chest Single View EDMS 02/21 00:44 Order name: Influenza Screen (A ; Complete Time: 01: EDMS 02/21 00:44 Order name: Group A Streptococcus Rapid Sc; Complete Time: 01: EDMS 02/21 00:45 Order name: Urine Dipstick--Ancillary (enter results); Complete Time: 02:06 em1 02/21 00:45 Order name: Urine --Ancillary (enter results); Complete Time: 02:06 em1 02/21 01:31 Order name: Throat Culture EDMS Administered Medications: 00:30 Drug: NS 0.9% 1000 ml Route: IV; Rate: 1000 ml; Site: right antecubital; la1 02:29 Follow up: IV Status: Completed infusion; IV Intake: 1000ml lp1 00:30 Drug: SOLU-Medrol 125 mg Route: IVP; Site: right antecubital; la1 01:45 Follow up: Response: No adverse reaction lp1 00:30 Drug: Albuterol - atroVENT (3:1) (2.5 mg - 0.5 mg) 3 ml Route: Nebulizer; la1 01:45 Follow up: Response: Marked relief of symptoms lp1 01:33 Drug: Tylenol 1000 mg Route: PO; lp1 02:28 Follow up: Response: No adverse reaction lp1 01:53 Drug: Rocephin - (cefTRIAXone) 1 grams Route: IVPB; Infused Over: 30 mins; Site: right lp1 antecubital; 02:30 Follow up: IV Status: Completed infusion; IV Intake: 10ml lp1 02:28 Not Given (Physician Discretion): Xopenex 1.25 mg Inhalation once lp1 Disposition: 02/21/18 02:03 Discharged to Home. Impression: Acute sinusitis. Pharyngitis. Bronchitis. - Condition is Stable. - Prescriptions for Zithromax Z- Subhash 250 mg Oral Tablet - take 1 tablet by ORAL route as directed for 5 days Day 1 - take two (2) tablets one time. Day 2, 3, 4 , 5 take one (1) tablet once daily.; 6 tablet. Guaifenesin- DM 10-100 mg/5 mL Oral Liquid - take 10 milliliter by ORAL route every 8 hours As needed as needed; 120 milliliter. - Medication Reconciliation Form, Thank You Letter, Antibiotic Education, Prescription Opioid Use form. - Follow up: Private Physician; When: 2 - 3 days; Reason: Re-evaluation by your physician. - Problem is new. - Symptoms have improved. Signatures: Dispatcher [employer] EDMS Bandar Hernandez MD MD pkl Pena, Laura, RN RN lp1 Abilio Abreu RN RN la1 Corrections: (The following items were deleted from the chart) 01:43 01:37 CBC+H.LAB.BRZ ordered. EDMS EDMS 01:44 01:37 BASIC METABOLIC PANEL+C.LAB.BRZ ordered. EDMS EDMS 01:44 01:37 Group A Streptococcus Rapid Sc+BA.LAB.BRZ ordered. EDMS EDMS 01:44 01:37 Influenza Screen (A \T\ B)+BA.LAB.BRZ ordered. EDMS EDMS 01:50 01:37 Chest Single View+RAD.RAD.BRZ ordered. EDMS EDMS 02:35 02:03 02/21/2018 02:03 Discharged to Home. Impression: Acute sinusitis. Pharyngitis. lp1 Bronchitis. Condition is Stable. Forms are Medication Reconciliation Form, Thank You Letter, Antibiotic Education, Prescription Opioid Use. Follow up: Private Physician; When: 2 - 3 days; Reason: Re-evaluation by your physician. Problem is new. Symptoms have improved. pkl
[2018-02-21 02:51] VITALS: TEMP 98.9
[2018-02-21 02:53] VITALS: BP 124/77; O2SAT 99
--- NOTE | 2018-02-21 07:31 | RAD REPORT ---
EXAM DESCRIPTION: Jorge Single View02/21/2018 12:49 am CLINICAL HISTORY: Chest pain COMPARISON: 2016 FINDINGS: The lungs appear clear of acute infiltrate. The heart is normal size IMPRESSION: No acute abnormalities displayed
== END 2018-02-21 02:35 | disposition home or self-care (01) ==
LOC: ER 23:39
DX: J40 Bronchitis, not specified as acute or chronic (principal); J01.90 Acute sinusitis, unspecified; J02.9 Acute pharyngitis, unspecified; Z72.0 Tobacco use; Z88.5 Allergy status to narcotic agent; Z88.6 Allergy status to analgesic agent
CPT/HCPCS: 36415; 71045; 80048; 81003; 81025; 85025; 87070; 87081; 87804; 94640; 96361; 96365; 96375; 99284; J0696; J2930; J7030